=== PATIENT | female | born 1985 | race Caucasian/White ===

== ENCOUNTER → 2018-08-19 | Outpatient (CLI) | payer OTHER ==
--- NOTE | 2018-08-19 13:38 | WOMENS IMAGING REPORT ---
EXAM DESCRIPTION: TRANSVAGINAL ULTRASOUND COMPLETED DATE/TIME: 08/19/2018 11:31 am REASON FOR STUDY: R19.8;SUPRAPUBIC FULLNESS R19.8 OTH SYMPTOMS AND SIGNS INVOLVING THE DGSTV SYS AN D ABD COMPARISON: None. TECHNIQUE: Dynamic and static grayscale images acquired of the pelvis via transvaginal approach and recorded on PACS. Additional selected color Doppler and spectral images recorded. LIMITATIONS: None. FINDINGS: UTERUS: 4.1 cm fibroid in the posterior uterus. ENDOMETRIAL STRIPE: No focal or generalized thickening. No masses. CERVIX: No nabothian cysts. RIGHT OVARY AND DOPPLER: Ovary not visualized. LEFT OVARY AND DOPPLER: Normal size. 3.3 cm cyst. Normal arterial vascular flow without evidence for torsion. FREE FLUID: None noted. OTHER: No other significant finding. MEASUREMENTS: UTERUS: 4.6 x 5.4 x 9.2 cm. ENDOMETRIAL STRIPE: 5 mm. RIGHT OVARY: Not visualized. LEFT OVARY: 3.3 x 3.5 x 3.6 cm. IMPRESSION: 4.1 CM UTERINE FIBROID. 3.3 CM LEFT OVARIAN CYST. TECHNICAL DOCUMENTATION: JOB ID: [id number] [email or web address]- All Rights Reserved Rev-01/01 Reading location - IP/workstation name: [email or web address]
== END ==
LOC: WI 10:55
PROVIDERS: ATTEND Physician Assistant
DX: D25.9 Leiomyoma of uterus, unspecified (principal); N83.202 Unspecified ovarian cyst, left side; R19.8 Other specified symptoms and signs involving the digestive system and abdomen
CPT/HCPCS: 76830